=== PATIENT | female | born 1940 | race Hispanic/Latino ===

== ENCOUNTER 2017-09-13 19:26 | Observation (INO) | payer MEDICARE ==
[~2017-09-13] VITALS: Ht 152.4 cm; Wt 44.4 kg
[2017-09-13 20:04] LABS: BASOPHILS % (AUTO) 0.3 % (0.0-5.0); EOSINOPHILS % (AUTO) 0.3 % (0.0-8.0); HEMATOCRIT 31.3 % (36-48); MEAN CORPUSCULAR HEMOGLOBIN 28.8 pg (27.0-33.0); MEAN CORPUSCULAR HGB CONC 33.5 g/dL (32.0-36.0); MEAN CORPUSCULAR VOLUME 85.8 fL (79-99); MONOCYTES % (AUTO) 10.1 % (3.0-13.0); NEUTROPHILS % (AUTO) 76.3 % (40.0-77.0); PLATELET COUNT (AUTO) 305 K/uL (130-400); RED BLOOD CELL COUNT(AUTO) 3.65 MIL/uL (4.00-5.50); RED CELL DISTRIBUTION WIDTH 14.3 % (11.0-15.5); WHITE BLOOD COUNT (AUTO) 13.2 K/uL (4.8-10.8)
[2017-09-13 20:05] LABS: APPEARANCE,URINE Clear (CLEAR); BILIRUBIN,URINE Negative (NEGATIVE); COLOR,URINE Dark Yellow (YELLOW); GLUCOSE, URINE (UA) Negative (NEGATIVE); KETONES,URINE Negative (NEGATIVE); LEUKOCYTE ESTERASE ,URINE Small (NEGATIVE); NITRATE,URINE Negative (NEGATIVE); OCCULT BLOOD,URINE Trace (NEGATIVE); PROTEIN,URINE Negative (NEGATIVE)
[2017-09-13 20:11] LABS: CREATININE 0.6 mg/dL (0.5-1.5); POTASSIUM 3.6 mmol/L (3.5-5.1)
[2017-09-13 20:16] LABS: ALBUMIN 3.1 g/dL (3.5-5.0); BILIRUBIN,TOTAL 0.4 mg/dL (0.2-1.0); TOTAL PROTEIN, SERUM 7.8 g/dL (6.0-8.3)
[2017-09-13 20:21] LABS: MUCUS,URINE Few LPF (None Seen)
[2017-09-13 20:23] LABS: BACTERIA,URINE Few /HPF (None Seen); HYALINE CASTS, URINE 0-1 /LPF (0-1 /LPF)
[2017-09-13] MEDS ORDERED: SODIUM CHLORIDE 0.9% 500ML 500 ML IV ONE (20:27)
[2017-09-13] MEDS ORDERED: CEFTRIAXONE SODIUM 1 GM ONE (20:27)
[2017-09-13] MEDS ORDERED: AZITHROMYCIN 250 MG TABLET PO ONE (20:27)
[2017-09-13 20:48] LABS: CREATINE KINASE MB < 0.5 ng/mL (0.5-3.6); CREATINE KINASE, TOTAL 44 U/L (21-232)
[2017-09-13] MEDS ORDERED: ONDANSETRON HCL 4 MG/2 ML VIAL ONE (22:24)
[2017-09-13] MEDS ORDERED: MORPHINE SULFATE 10 MG/ML 1ML SYG ONE (22:25)
[2017-09-13 22:48] LABS: AMYLASE 41 U/L (25-115); LIPASE 124 U/L (114-286)
[2017-09-14 01:25] VITALS: BP 108/64
[2017-09-14 04:00] VITALS: BP 108/61
[2017-09-14] MEDS ORDERED: ONDANSETRON HCL 4 MG/2 ML VIAL IVP PRN (04:00)
[2017-09-14] MEDS ORDERED: MORPHINE SULFATE 2 MG/ML 1ML SYG IVP PRN (04:00)
[2017-09-14 06:03] LABS: HEMATOCRIT 28.6 % (36-48); MEAN CORPUSCULAR HEMOGLOBIN 28.8 pg (27.0-33.0); MEAN CORPUSCULAR HGB CONC 33.9 g/dL (32.0-36.0); MEAN CORPUSCULAR VOLUME 85.1 fL (79-99); PLATELET COUNT (AUTO) 284 K/uL (130-400); RED BLOOD CELL COUNT(AUTO) 3.36 MIL/uL (4.00-5.50); RED CELL DISTRIBUTION WIDTH 14.4 % (11.0-15.5); WHITE BLOOD COUNT (AUTO) 9.3 K/uL (4.8-10.8)
[2017-09-14 06:20] LABS: ALBUMIN 2.5 g/dL (3.5-5.0); BILIRUBIN,TOTAL 0.6 mg/dL (0.2-1.0); CREATININE 0.5 mg/dL (0.5-1.5); TOTAL PROTEIN, SERUM 6.8 g/dL (6.0-8.3)
[2017-09-14] MEDS: IPRATROPIUM/ALBUTEROL SULFATE 3 ML SOLUTION IH SCH ×3 (07:36→17:58)
[2017-09-14 08:00] VITALS: BP 99/52
[2017-09-14] MEDS: ENOXAPARIN SODIUM 30 MG/0.3 ML SQ SCH (08:26)
[2017-09-14] MEDS ORDERED: DEXTROSE 5 % AND 0.9 % NACL 1,000 ML IV SCH (11:45)
[2017-09-14 12:00] VITALS: BP 122/65
[2017-09-14 16:00] VITALS: BP 114/54
[2017-09-14] MEDS: 1/2 NORMAL SALINE 1,000 ML IV SCH (18:16)
[2017-09-14 20:00] VITALS: BP 104/50
[2017-09-14] MEDS ORDERED: CEFTRIAXONE 1GM/D5W 50ML 50 ML IV SCH (20:30)
[2017-09-14] MEDS ORDERED: AZITHROMYCIN 500MG+NS 250ML 250 ML IV SCH (21:00)
[2017-09-14] MEDS ORDERED: CEFTRIAXONE SODIUM 1 GM ONE (21:34)
[2017-09-14] MEDS ORDERED: WATER FOR INJECTION,STERILE 20 ML VIAL ONE (21:35)
[2017-09-14] MEDS: ALPRAZOLAM 0.25 MG TABLET PO SCH (23:18)
[2017-09-15] VITALS: BP 110/54
[2017-09-15] MEDS: IPRATROPIUM/ALBUTEROL SULFATE 3 ML SOLUTION IH SCH ×3 (00:23→11:23)
[2017-09-15 04:00] VITALS: BP 114/65
[2017-09-15 05:41] LABS: BASOPHILS % (AUTO) 0.6 % (0.0-5.0); EOSINOPHILS % (AUTO) 6.5 % (0.0-8.0); HEMATOCRIT 28.6 % (36-48); LYMPHOCYTES % (AUTO) 23.4 % (21.0-51.0); MEAN CORPUSCULAR HEMOGLOBIN 29.1 pg (27.0-33.0); MEAN CORPUSCULAR VOLUME 85.7 fL (79-99); MONOCYTES % (AUTO) 10.5 % (3.0-13.0); PLATELET COUNT (AUTO) 296 K/uL (130-400); RED BLOOD CELL COUNT(AUTO) 3.33 MIL/uL (4.00-5.50); RED CELL DISTRIBUTION WIDTH 14.5 % (11.0-15.5); WHITE BLOOD COUNT (AUTO) 6.5 K/uL (4.8-10.8)
[2017-09-15 06:08] LABS: ALBUMIN 2.3 g/dL (3.5-5.0); BILIRUBIN,TOTAL 0.3 mg/dL (0.2-1.0); CREATININE 0.4 mg/dL (0.5-1.5); POTASSIUM 3.6 mmol/L (3.5-5.1); TOTAL PROTEIN, SERUM 6.7 g/dL (6.0-8.3)
[2017-09-15] MEDS: 1/2 NORMAL SALINE 1,000 ML IV SCH (06:35)
[2017-09-15 08:00] VITALS: BP 105/60
[2017-09-15] MEDS: ALPRAZOLAM 0.25 MG TABLET PO SCH (09:00)
[2017-09-15] MEDS: ENOXAPARIN SODIUM 30 MG/0.3 ML SQ SCH (09:20)
[2017-09-15] MEDS ORDERED: CEFTRIAXONE SODIUM 1 GM IVP SCH (11:00)
[2017-09-15 12:00] VITALS: BP 109/60
[2017-09-15] MEDS ORDERED: AZIT250T9 PO (12:29)
[2017-09-15] MEDS ORDERED: CEPH500B PO (12:29)
== END 2017-09-15 13:10 | disposition home or self-care (01) ==
LOC: EDH 19:26 → EDHIP 20:43 → 3CH 09-14 01:14
PROVIDERS: ADMIT Internal Medicine; ATTEND Internal Medicine
DX: J18.9 Pneumonia, unspecified organism (principal); J44.0 Chronic obstructive pulmonary disease with (acute) lower respiratory infection; D64.9 Anemia, unspecified; R11.2 Nausea with vomiting, unspecified
CPT/HCPCS: 36415 ×3; 71010; 80053 ×3; 81001; 82150; 82550; 82553; 83605; 83690; 84484; 85025 ×2; 85027; 87040 ×2; 87088; 87804 ×2; 93005; 94640 ×6; 94664; 96361 ×2; 96365; 96368; 96372 ×2; 96375; 99285; G0378 ×40; J0456; J0696 ×3; J1650 ×2; J2270; J2405; J7040

== ENCOUNTER 2021-08-20 16:29 | Inpatient (IN) | payer OTHER, MEDICARE ==
[~2021-08-20] VITALS: Ht 154.9 cm; Wt 42.8 kg
[~2021-08-20 16:29] MED LIST: AZIT250T9 PO; CEPH500B PO
[2021-08-20 17:01] LABS: BASOPHILS % (AUTO) 0.2 % (0.0-5.0); LYMPHOCYTES % (AUTO) 4.3 % (21.0-51.0); MEAN CORPUSCULAR HEMOGLOBIN 29.4 pg (27.0-33.0); MEAN CORPUSCULAR HGB CONC 32.4 g/dL (32.0-36.0); MEAN CORPUSCULAR VOLUME 90.9 fL (79-99); MONOCYTES % (AUTO) 4.3 % (3.0-13.0); NEUTROPHILS % (AUTO) 90.6 % (40.0-77.0); PLATELET COUNT (AUTO) 289 K/uL (130-400); RED BLOOD CELL COUNT(AUTO) 4.18 MIL/uL (4.00-5.50); WHITE BLOOD COUNT (AUTO) 20.7 K/uL (4.8-10.8)
[2021-08-20 17:06] LABS: CREATININE 0.6 mg/dL (0.5-1.5); POTASSIUM 3.6 mmol/L (3.5-5.1)
[2021-08-20 17:06] LABS: APPEARANCE,URINE Turbid (CLEAR); BILIRUBIN,URINE Negative (NEGATIVE); COLOR,URINE Yellow (YELLOW); GLUCOSE, URINE (UA) Negative (NEGATIVE); KETONES,URINE Negative (NEGATIVE); LEUKOCYTE ESTERASE ,URINE Large (NEGATIVE); NITRATE,URINE Positive (NEGATIVE); OCCULT BLOOD,URINE Negative (NEGATIVE); PROTEIN,URINE Negative (NEGATIVE)
[2021-08-20 17:10] LABS: ALBUMIN 3.6 g/dL (3.5-5.0); BILIRUBIN,TOTAL 0.4 mg/dL (0.2-1.0); MAGNESIUM 2.3 mg/dL (1.80-2.40)
[2021-08-20 17:11] LABS: INR 1.1 (0.85-1.15); PROTHROMBIN TIME 11.9 SEC (9.6-11.6)
[2021-08-20 17:17] LABS: BACTERIA,URINE Many /HPF (None Seen); MUCUS,URINE Few LPF (None Seen); RBC,URINE 0-1 /HPF (0-1); SQUAMOUS EPITHELIAL CELL,UR 0-2 /HPF (0-2)
[2021-08-20] MEDS ORDERED: CEFTRIAXONE 2GM VIAL IVP ONE (19:00)
[2021-08-20] MEDS ORDERED: ONDANSETRON 4MG TABLET PO PRN (20:30)
[2021-08-20] MEDS: INSULIN R PO SS1 SQ SCH (20:36)
[2021-08-20 22:45] VITALS: BP 150/68
[2021-08-20] MEDS ORDERED: ERGO500093 PO (23:00)
[2021-08-20] MEDS ORDERED: ASPI-1197 PO (23:00)
[2021-08-20] MEDS ORDERED: QUET50TA79 PO (23:00)
[2021-08-20] MEDS ORDERED: MEMA28CA16 PO (23:00)
[2021-08-20] MEDS: ACETAMINOPHEN 325 MG TAB PO PRN (23:41)
[2021-08-21 03:34] VITALS: BP 93/54
[2021-08-21 04:11] LABS: HEMATOCRIT 35.1 % (36-48); MEAN CORPUSCULAR HEMOGLOBIN 29.2 pg (27.0-33.0); MEAN CORPUSCULAR HGB CONC 31.9 g/dL (32.0-36.0); MEAN CORPUSCULAR VOLUME 91.4 fL (79-99); RED BLOOD CELL COUNT(AUTO) 3.84 MIL/uL (4.00-5.50); RED CELL DISTRIBUTION WIDTH 13.2 % (11.0-15.5); WHITE BLOOD COUNT (AUTO) 9.4 K/uL (4.8-10.8)
[2021-08-21 04:19] LABS: HEMOGLOBIN A1C 5.4 % (4.0-6.0)
[2021-08-21 04:38] LABS: ALBUMIN 3.3 g/dL (3.5-5.0); BILIRUBIN,TOTAL 0.3 mg/dL (0.2-1.0); CREATININE 0.6 mg/dL (0.5-1.5); MAGNESIUM 2.2 mg/dL (1.80-2.40); POTASSIUM 3.9 mmol/L (3.5-5.1); TOTAL PROTEIN, SERUM 7.1 g/dL (6.0-8.3)
[2021-08-21] MEDS: INSULIN R PO SS1 SQ SCH ×4 (06:34→20:31)
[2021-08-21 08:00] VITALS: BP 120/55
[2021-08-21] MEDS: ENOXAPARIN SODIUM 30 MG/0.3 ML SQ SCH (08:34)
[2021-08-21 11:54] VITALS: BP 127/51
[2021-08-21 15:43] VITALS: BP 139/59
[2021-08-21] MEDS: CEFTRIAXONE 2GM VIAL IVP SCH (20:10)
[2021-08-21] MEDS: ASPIRIN 81MG CHEW TAB PO SCH (20:19)
[2021-08-21] MEDS: MEMANTINE HCL 5 MG TABLET PO SCH (20:20)
[2021-08-21] MEDS: QUETIAPINE FUMARATE 100 MG TAB PO SCH (20:20)
[2021-08-21] MEDS: ERGOCALCIFEROL PO SCH (20:20)
[2021-08-21 21:04] VITALS: BP 148/77
[2021-08-22 00:53] VITALS: BP 124/83
[2021-08-22] MEDS: INSULIN R PO SS1 SQ SCH ×3 (06:20→20:15)
[2021-08-22 06:43] VITALS: BP 116/55
[2021-08-22] MEDS: MEMANTINE HCL 5 MG TABLET PO SCH ×2 (09:50→20:14)
[2021-08-22] MEDS: ENOXAPARIN SODIUM 30 MG/0.3 ML SQ SCH (09:51)
[2021-08-22 11:55] VITALS: BP 155/70
[2021-08-22 16:00] VITALS: BP 136/67
[2021-08-22] MEDS: CEFTRIAXONE 2GM VIAL IVP SCH (20:14)
[2021-08-22] MEDS: QUETIAPINE FUMARATE 100 MG TAB PO SCH (20:14)
[2021-08-22] MEDS: ASPIRIN 81MG CHEW TAB PO SCH (20:14)
[2021-08-22] MEDS: ERGOCALCIFEROL PO SCH (20:15)
[2021-08-23] VITALS (7 sets, daily range): BP systolic 106–156; BP diastolic 48–74
[2021-08-23] MEDS: INSULIN R PO SS1 SQ SCH ×4 (06:15→21:00)
[2021-08-23] MEDS: ENOXAPARIN SODIUM 30 MG/0.3 ML SQ SCH (12:00)
[2021-08-23] MEDS: MEMANTINE HCL 5 MG TABLET PO SCH ×2 (12:00→21:22)
[2021-08-23] MEDS: ERGOCALCIFEROL PO SCH (21:00)
[2021-08-23] MEDS: ASPIRIN 81MG CHEW TAB PO SCH (21:18)
[2021-08-23] MEDS: QUETIAPINE FUMARATE 100 MG TAB PO SCH (21:18)
[2021-08-23] MEDS: CEFTRIAXONE 2GM VIAL IVP SCH (21:18)
[2021-08-24 03:38] VITALS: BP 97/56
[2021-08-24] MEDS: INSULIN R PO SS1 SQ SCH ×4 (07:00→21:00)
[2021-08-24 07:20] VITALS: BP 119/58
[2021-08-24] MEDS: MEMANTINE HCL 5 MG TABLET PO SCH ×2 (11:12→22:14)
[2021-08-24] MEDS: ENOXAPARIN SODIUM 30 MG/0.3 ML SQ SCH (11:19)
[2021-08-24 11:20] VITALS: BP 146/69
[2021-08-24 15:15] VITALS: BP 133/79
[2021-08-24] MEDS: LACTULOSE 20 GM/30 ML UDCUP PO SCH ×2 (15:47→22:14)
[2021-08-24 19:57] VITALS: BP 140/67
[2021-08-24] MEDS: ERGOCALCIFEROL PO SCH (21:00)
[2021-08-24] MEDS: CEFTRIAXONE 2GM VIAL IVP SCH (22:13)
[2021-08-24] MEDS: ASPIRIN 81MG CHEW TAB PO SCH (22:13)
[2021-08-24] MEDS: QUETIAPINE FUMARATE 100 MG TAB PO SCH (22:14)
[2021-08-24 23:28] VITALS: BP 124/65
[2021-08-25 04:00] VITALS: BP 94/58
[2021-08-25] MEDS: LACTULOSE 20 GM/30 ML UDCUP PO SCH ×4 (04:38→20:40)
[2021-08-25] MEDS: INSULIN R PO SS1 SQ SCH ×4 (07:30→20:27)
[2021-08-25 08:00] VITALS: BP 169/70
[2021-08-25] MEDS: MEMANTINE HCL 5 MG TABLET PO SCH ×2 (09:15→20:29)
[2021-08-25] MEDS: ENOXAPARIN SODIUM 30 MG/0.3 ML SQ SCH (09:16)
[2021-08-25 11:31] VITALS: BP 173/83
[2021-08-25 13:33] LABS: HEMATOCRIT 39.3 % (36-48); MEAN CORPUSCULAR HEMOGLOBIN 29.4 pg (27.0-33.0); MEAN CORPUSCULAR HGB CONC 32.1 g/dL (32.0-36.0); MEAN CORPUSCULAR VOLUME 91.6 fL (79-99); RED BLOOD CELL COUNT(AUTO) 4.29 MIL/uL (4.00-5.50); RED CELL DISTRIBUTION WIDTH 13.2 % (11.0-15.5); WHITE BLOOD COUNT (AUTO) 19.1 K/uL (4.8-10.8)
[2021-08-25 13:41] LABS: CREATININE 0.7 mg/dL (0.5-1.5); MAGNESIUM 2.2 mg/dL (1.80-2.40); POTASSIUM 3.4 mmol/L (3.5-5.1)
[2021-08-25] MEDS ORDERED: MAGNESIUM CITRATE 296 ML SOLUTION PO ONE (15:00)
[2021-08-25 16:00] VITALS: BP 130/58
[2021-08-25 20:00] VITALS: BP 144/74
[2021-08-25] MEDS: QUETIAPINE FUMARATE 100 MG TAB PO SCH (20:29)
[2021-08-25] MEDS: ASPIRIN 81MG CHEW TAB PO SCH (20:29)
[2021-08-25] MEDS: CEFTRIAXONE 2GM VIAL IVP SCH (20:31)
[2021-08-25] MEDS: ERGOCALCIFEROL PO SCH (20:40)
[2021-08-26] VITALS: BP 106/50
[2021-08-26] MEDS: LACTULOSE 20 GM/30 ML UDCUP PO SCH ×4 (02:36→21:30)
[2021-08-26 04:00] VITALS: BP 131/71
[2021-08-26] MEDS: ACETAMINOPHEN 325 MG TAB PO PRN (05:06)
[2021-08-26] MEDS: INSULIN R PO SS1 SQ SCH ×4 (05:54→21:00)
[2021-08-26 07:58] VITALS: BP 116/58
[2021-08-26] MEDS: MEMANTINE HCL 5 MG TABLET PO SCH ×2 (08:37→20:15)
[2021-08-26] MEDS: ENOXAPARIN SODIUM 30 MG/0.3 ML SQ SCH (09:00)
[2021-08-26 12:00] VITALS: BP 120/54
[2021-08-26 16:00] VITALS: BP 140/50
[2021-08-26 20:00] VITALS: BP 153/77
[2021-08-26] MEDS: FLUCONAZOLE 100 MG TAB PO SCH (20:15)
[2021-08-26] MEDS: QUETIAPINE FUMARATE 100 MG TAB PO SCH (20:15)
[2021-08-26] MEDS: ASPIRIN 81MG CHEW TAB PO SCH (20:16)
[2021-08-26] MEDS: CEFTRIAXONE 2GM VIAL IVP SCH (20:17)
[2021-08-26] MEDS: ERGOCALCIFEROL PO SCH (20:22)
[2021-08-27] VITALS: BP 168/69
[2021-08-27] MEDS: LACTULOSE 20 GM/30 ML UDCUP PO SCH ×4 (02:15→21:30)
[2021-08-27 04:00] VITALS: BP 123/89
[2021-08-27 05:30] LABS: HEMATOCRIT 36.9 % (36-48); MEAN CORPUSCULAR HEMOGLOBIN 28.7 pg (27.0-33.0); MEAN CORPUSCULAR HGB CONC 31.2 g/dL (32.0-36.0); RED BLOOD CELL COUNT(AUTO) 4.01 MIL/uL (4.00-5.50); RED CELL DISTRIBUTION WIDTH 13.1 % (11.0-15.5); WHITE BLOOD COUNT (AUTO) 9.7 K/uL (4.8-10.8)
[2021-08-27 05:38] LABS: CREATININE 0.5 mg/dL (0.5-1.5); MAGNESIUM 2.4 mg/dL (1.80-2.40); POTASSIUM 3.2 mmol/L (3.5-5.1)
[2021-08-27] MEDS: INSULIN R PO SS1 SQ SCH ×4 (07:12→20:35)
[2021-08-27 08:00] VITALS: BP 159/68
[2021-08-27] MEDS: MEMANTINE HCL 5 MG TABLET PO SCH ×2 (09:17→21:33)
[2021-08-27] MEDS: ENOXAPARIN SODIUM 30 MG/0.3 ML SQ SCH (09:18)
[2021-08-27 11:39] VITALS: BP 131/62
[2021-08-27 16:00] VITALS: BP 162/78
[2021-08-27 20:00] VITALS: BP 134/85
[2021-08-27] MEDS ORDERED: KCL 20 MEQ ERTAB PO PRN (21:00)
[2021-08-27] MEDS: ERGOCALCIFEROL PO SCH (21:00)
[2021-08-27] MEDS ORDERED: POTASSIUM CHLORIDE 20MEQ/100ML 100 ML IV PRN ×2 (21:00)
[2021-08-27] MEDS ORDERED: LIDOCAINE HCL-MPF 1% 2ML VIAL IV PRN ×2 (21:00)
[2021-08-27] MEDS: CEFTRIAXONE 2GM VIAL IVP SCH (21:33)
[2021-08-27] MEDS: QUETIAPINE FUMARATE 100 MG TAB PO SCH (21:34)
[2021-08-27] MEDS: ASPIRIN 81MG CHEW TAB PO SCH (21:34)
[2021-08-27] MEDS: FLUCONAZOLE 100 MG TAB PO SCH (21:36)
[2021-08-27] MEDS: POTASSIUM CHLORIDE 10% ELIXIR 20 MEQ/15 ML UDCUP PO PRN (21:40)
[2021-08-28] VITALS (7 sets, daily range): BP systolic 118–156; BP diastolic 59–79
[2021-08-28] MEDS: LACTULOSE 20 GM/30 ML UDCUP PO SCH ×5 (00:59→21:44)
[2021-08-28] MEDS: POTASSIUM CHLORIDE 10% ELIXIR 20 MEQ/15 ML UDCUP PO PRN (01:53)
[2021-08-28] MEDS: INSULIN R PO SS1 SQ SCH ×4 (05:24→20:37)
[2021-08-28] MEDS: MEMANTINE HCL 5 MG TABLET PO SCH ×2 (14:39→20:36)
[2021-08-28] MEDS: ENOXAPARIN SODIUM 30 MG/0.3 ML SQ SCH (14:40)
[2021-08-28] MEDS: FLUCONAZOLE 100 MG TAB PO SCH (18:03)
[2021-08-28] MEDS: QUETIAPINE FUMARATE 100 MG TAB PO SCH (20:36)
[2021-08-28] MEDS: CEFTRIAXONE 2GM VIAL IVP SCH (20:36)
[2021-08-28] MEDS: ASPIRIN 81MG CHEW TAB PO SCH (20:36)
[2021-08-28] MEDS: ERGOCALCIFEROL PO SCH (20:37)
[2021-08-29 03:48] VITALS: BP 126/73
[2021-08-29] MEDS ORDERED: LACTULOSE 20 GM/30 ML UDCUP PO PRN (04:00)
[2021-08-29] MEDS: INSULIN R PO SS1 SQ SCH ×2 (05:43→11:30)
[2021-08-29] MEDS: MEMANTINE HCL 5 MG TABLET PO SCH (09:38)
[2021-08-29 09:39] VITALS: BP 142/68
[2021-08-29] MEDS: ENOXAPARIN SODIUM 30 MG/0.3 ML SQ SCH (09:39)
[2021-08-29 11:10] VITALS: BP 140/59
== END 2021-08-29 16:05 | disposition hospice, home (50) | DRG 690 ==
LOC: EDH 16:29 → EDHIP 18:55 → 3AH 22:10
PROVIDERS: ADMIT Internal Medicine Infectious Disease; ATTEND Internal Medicine Infectious Disease
DX: N39.0 Urinary tract infection, site not specified (principal); E46 Unspecified protein-calorie malnutrition; G93.40 Encephalopathy, unspecified; B37.0 Candidal stomatitis; E87.1 Hypo-osmolality and hyponatremia; Z68.1 Body mass index [BMI] 19.9 or less, adult; F03.90 Unspecified dementia, unspecified severity, without behavioral disturbance, psychotic disturbance, mood disturbance, and anxiety; J44.9 Chronic obstructive pulmonary disease, unspecified; M81.0 Age-related osteoporosis without current pathological fracture; I10 Essential (primary) hypertension; E86.0 Dehydration; H26.9 Unspecified cataract; E03.9 Hypothyroidism, unspecified; R53.81 Other malaise; K59.00 Constipation, unspecified; E87.6 Hypokalemia; R13.12 Dysphagia, oropharyngeal phase; Z74.01 Bed confinement status; Z85.42 Personal history of malignant neoplasm of other parts of uterus; Z85.3 Personal history of malignant neoplasm of breast; Z90.710 Acquired absence of both cervix and uterus
CPT/HCPCS: 36415; 71045; 74230; 80048; 80053; 81001; 82948; 83036; 83735; 84132; 84484; 85025; 85027; 85610; 87040; 87077; 87088; 87186; 92526; 92610; 92611; 93005; G0378; J0696; J1650